=== PATIENT | male | born 1990 | race African-American/Black ===

== ENCOUNTER 2016-10-21 11:20 | Emergency (ER) | payer OTHER ==
[~2016-10-21] VITALS: Ht 172.7 cm; Wt 95.3 kg
[2016-10-21 11:30] VITALS: TEMP 98.2
[2016-10-21 12:08] LABS: PLATELET COUNT 159 K/uL (142-355)
[2016-10-21 12:54] VITALS: BP 148/82
== END 2016-10-21 12:54 | disposition home or self-care (01) ==
LOC: ED 11:20
DX: J32.0 Chronic maxillary sinusitis (principal); R68.84 Jaw pain; K04.7 Periapical abscess without sinus
CPT/HCPCS: 36415; 85027; 99283

== ENCOUNTER 2018-05-05 14:35 | Emergency (ER) | payer OTHER ==
[~2018-05-05] VITALS: Ht 172.7 cm; Wt 99.8 kg
[2018-05-05 15:42] VITALS: BP 137/85; TEMP 97.7
== END 2018-05-05 15:51 | disposition home or self-care (01) ==
LOC: ED 14:35
DX: S61.012A Laceration without foreign body of left thumb without damage to nail, initial encounter (principal); S61.211A Laceration without foreign body of left index finger without damage to nail, initial encounter; W45.8XXA Other foreign body or object entering through skin, initial encounter; Y92.89 Other specified places as the place of occurrence of the external cause
CPT/HCPCS: 90471; 90715; 96372; 99283; J0696

== ENCOUNTER 2018-08-30 09:55 | Outpatient (CLI) | payer OTHER | END 2018-08-30 22:36 | disposition home or self-care (01) | LOC: RAD 09:55 | DX: M54.32 Sciatica, left side (principal); M54.5 Low back pain ==

== ENCOUNTER 2019-06-06 10:19 | Emergency (ER) | payer OTHER ==
[~2019-06-06] VITALS: Ht 172.7 cm; Wt 104.3 kg
[2019-06-06 10:25] VITALS: BP 137/79; TEMP 98.2
== END 2019-06-06 10:51 | disposition home or self-care (01) ==
LOC: ED 10:19
DX: B02.9 Zoster without complications (principal)
CPT/HCPCS: 99282

== ENCOUNTER 2022-07-03 16:26 | Emergency (ER) | payer OTHER ==
[~2022-07-03] VITALS: Ht 172.7 cm; Wt 104.3 kg
[2022-07-03 16:29] VITALS: BP 126/74; TEMP 98.8
== END 2022-07-03 17:24 | disposition home or self-care (01) ==
LOC: ED 16:26
DX: S70.11XA Contusion of right thigh, initial encounter (principal); W20.8XXA Other cause of strike by thrown, projected or falling object, initial encounter; Y92.89 Other specified places as the place of occurrence of the external cause
CPT/HCPCS: 99282

== ENCOUNTER 2022-09-25 07:59 | Outpatient (CLI) | payer OTHER | END 2022-09-25 20:40 | disposition home or self-care (01) | LOC: CT 07:59 | PROVIDERS: ATTEND Internal Medicine | DX: R10.84 Generalized abdominal pain (principal); R05.9 Cough, unspecified | CPT/HCPCS: Q9963 ==

== ENCOUNTER 2022-09-25 08:04 | Outpatient (CLI) | payer OTHER | END 2022-09-25 20:41 | disposition home or self-care (01) | LOC: RAD 08:04 | PROVIDERS: ATTEND Internal Medicine | DX: R10.84 Generalized abdominal pain (principal); R05.9 Cough, unspecified | CPT/HCPCS: Q9963 ==

== ENCOUNTER 2022-10-07 08:07 | Outpatient (CLI) | payer OTHER | END 2022-10-07 18:55 | disposition home or self-care (01) | LOC: NM 08:07 | PROVIDERS: ATTEND Internal Medicine | DX: K80.20 Calculus of gallbladder without cholecystitis without obstruction (principal) | CPT/HCPCS: A9537 ==

== ENCOUNTER 2022-10-21 14:26 | Emergency (ER) | payer OTHER ==
[~2022-10-21] VITALS: Ht 172.7 cm; Wt 88.5 kg
[2022-10-21 16:40] VITALS: BP 126/75; TEMP 98.3
== END 2022-10-21 16:45 | disposition home or self-care (01) ==
LOC: ED 14:26
PROC: 0HQGXZZ Repair Left Hand Skin, External Approach (ICD-10-PCS; principal; 2022-10-21)
DX: S61.217A Laceration without foreign body of left little finger without damage to nail, initial encounter (principal); W23.0XXA Caught, crushed, jammed, or pinched between moving objects, initial encounter
CPT/HCPCS: 96372; 99283; J0696